=== PATIENT | female | born 1995 | race Caucasian/White ===

== ENCOUNTER 2018-07-06 12:12 | Inpatient (IN) | payer MEDICAID ==
[2018-07-06] VITALS (40 sets, daily range): BP systolic 99–156; BP diastolic 53–78; PULSE 64–108; TEMP 98.1–98.7
[~2018-07-06] VITALS: Ht 165.1 cm; Wt 70.0 kg
[~2018-07-06 12:12] MED LIST: MACROBID 1100 MG/CAP PO; PYRIDIUM 100MG100 MG PO
--- NOTE | 2018-07-06 12:20 | NUR ---
Pt arrives on unit ambulatory. G2L0 at 40.1 weeks gestation. States regular contractions that increased in intensity and strength since 0300. Reports "a gush of fluid while bouncing on birthing ball at 1030." States vaginal bleeding on pad last night. Reports GFM. Amniotest positive. SVE per this RN /-2. EFM and toco applied. VSS. Admission assessment completed. Dr. Olivo notified.See physician notification. IV started in LW. Labs drawn. LR infusing. Consents signed. Pt updated on POC. Safety reviewed. Call light within reach. Bed locked in low position. No questions or concerns at this time. 1313-Cat 1 FHR strip obtained. Pt up to BB.
[2018-07-06] MEDS ORDERED: PRENATAL MVI (12:31)
[2018-07-06 13:05] LABS: BASO % 0.3 % (0.0-2.0); EOS # 0.1 (0.0-0.7); EOS % 0.6 % (0-4.0); GRAN # 7.7 (1.4-6.5); GRAN % 78.5 % (42.2-75.2); HEMATOCRIT 37.5 % (37.0-47.0); LYMPH # 1.4 (1.2-3.4); LYMPH % 13.8 % (20.0-51.0); MEAN CELL VOLUME 87 fl (80.0-100.0); MEAN CORPUSCULAR HEMOGLOBIN 30 pg (27.0-31.0); MEAN CORPUSCULAR HGB CONC 35 g/dl (33.0-37.0); MONO # 0.6 (0.1-0.6); MONO % 6.5 % (1.7-9.3); PLATELET COUNT 165 K/mm3 (130-400); RED BLOOD COUNT 4.33 M/mm3 (4.10-5.30); REDCELL DISTRIBUTION WIDTH-CV 12.7 % (11.5-14.5)
--- NOTE | 2018-07-06 14:05 | NUR ---
Pt sitting upright for epidural placement. Difficulty tracing FHR due to maternal position. This RN at bedside adjusting monitors. FHR audible. 1419-Test dose administered by Cortney Pat CRNA. No adverse effects noted. See anesthesia record. Pt repositioned WL. LR infusing. Updated on POC. Safety reviewed. Call light within reach. No questions or concerns at this time. Bed locked in low position.
[2018-07-07] VITALS (41 sets, daily range): BP systolic 89–129; BP diastolic 47–79; PULSE 75–151; TEMP 97.6–100.1
--- NOTE | 2018-07-07 05:35 | NUR ---
RN at bedside, monitoring recording maternal HR 133, pulse ox placed at this time. maternal HR verified in 120s. Maternal temp 100.0 degrees F. Pt feels warm on exam. Dr. Olivo notified, see physician notification.
--- NOTE | 2018-07-07 06:00 | NUR ---
0558 - gentamycin hung 0600 - Pt educated on pushing techniques, positioned into footplates. Initial push at this time. 0605 - Late deceleration down to 90s bpm noted after pushing. Wedge placed under R hip. 0615 - Bedside report given to LUCILA Cottrell.
--- NOTE | 2018-07-07 07:00 | NUR ---
0646- O2 sat monitor on and tracing to compair maternal and Hr. FHR tracing correctly. 0653- O2 sat monitor off.
--- NOTE | 2018-07-07 07:15 | NUR ---
0705- Dr Olivo at bedside to evaluate pushing. Discusses current situation and options for delivery. 0708- Pt pushes with UC. FHR late deceleration after each pushing round. discusses assisting with Vacuum, informed consent provided. Pt agrees to procede with vacuum. Pt and room prepped for delivery. Lianna, Nursery RN called to room. Kraft removed without difficulty. 0714- Vacuum on. Pt continues pushing with UCs. at bedside monitoring strip. Pressure applied by Dr Olivo into green zone with the start of each pushing round, released between. 0720, 0722, 0728, 0730, 0732, 0741- Vacuum pop-offs noted. See physicians notes. 0747- Vacuum assisted delivery of viable male . Cord clamped and cut. Infant taken to warmer where tended to Nursery RN and ANABELA Davidson. Pitocin off. Cord gases and cord blood obtained by . 0752- Spontaneous delivery of placenta, Pitocin on at 333ml/hr. Fundus massaged to firm by . 2nd degree episiotomy repaired by , Pt tolerated well. Pericare completed, Ice pack on. Pt repositioned.
--- NOTE | 2018-07-07 10:20 | NUR ---
1020- Pt ambulates to bathroom independently, unable to void. Pt back to bed. Straight cath using sterile technique by this RN without difficulty, 600mls removed from bladder. Pt tolerated well. Pericare compelted. Ice pack and underwear on. Pt ambulates to room independently with RN. Oriented to room. Call light within reach.
--- NOTE | 2018-07-07 18:34 | NUR ---
Pt had a room full of visitors, did not want bedside. Report received. Care taken over by this RN.
[2018-07-08 00:40] VITALS: BP 98/41; PULSE 70; TEMP 97.5
[2018-07-08 04:25] VITALS: BP 104/42; PULSE 74; TEMP 97.5
[2018-07-08 06:35] LABS: HEMATOCRIT 26.6 % (37.0-47.0); HEMOGLOBIN 9.1 g/dl (12.5-16.0)
[2018-07-08 08:47] VITALS: BP 93/50; PULSE 62; TEMP 97.6
--- NOTE | 2018-07-08 09:42 | NUR ---
Initial visit attempt; Consult in progress, Candlemaker left card of congratulations for the of her son and information regarding the availability of spiritual care.
[2018-07-08] MEDS ORDERED: FERROUS SU325 MG/TAB PO (10:30)
[2018-07-08] MEDS ORDERED: IBU600 MG PO (10:30)
[2018-07-08] MEDS ORDERED: PERCOCET 325 MG1 TA2 PO (10:31)
[2018-07-08 22:20] VITALS: BP 99/55; PULSE 91; TEMP 98.3
[2018-07-09 09:15] VITALS: BP 102/50; PULSE 61; TEMP 98.1
--- NOTE | 2018-07-09 10:30 | NUR ---
1030- Pt feels her nipples are too sore to BF. Pt requesting to feed baby a bottle and start pumping. This RN explains pump set-up and cleaning. Assist with first pumping. Education provided. Pt verbalizes understanding. States that pumping hurts much less than BF.
== END 2018-07-09 17:45 | disposition home or self-care (01) | DRG 807 ==
LOC: LDRO 12:12 → OB 12:30 → LDR 12:30 → OB 07-07 10:30
PROVIDERS: ADMIT Obstetrics & Gynecology
PROC: 10D07Z6 Extraction of Products of Conception, Vacuum, Via Natural or Artificial Opening (ICD-10-PCS; principal; 2018-07-07)
PROC: 0KQM0ZZ Repair Perineum Muscle, Open Approach (ICD-10-PCS; 2018-07-07)
PROC: 0W8NXZZ Division of Female Perineum, External Approach (ICD-10-PCS; 2018-07-07)
DX: O41.1230 Chorioamnionitis, third trimester, not applicable or unspecified (principal); Z37.0 Single live birth; Z3A.40 40 weeks gestation of pregnancy; O76 Abnormality in fetal heart rate and rhythm complicating labor and delivery; O77.0 Labor and delivery complicated by meconium in amniotic fluid; O70.1 Second degree perineal laceration during delivery; O90.81 Anemia of the puerperium; D50.0 Iron deficiency anemia secondary to blood loss (chronic)
CPT/HCPCS: C9113; J0290; J1580; J2405; J2590; J7120